=== PATIENT | male | born 1950 | race Caucasian/White ===

== ENCOUNTER 2017-09-26 17:11 | Emergency (ER) | payer MEDICARE, MEDICAID ==
[2017-09-26 19:48] LABS: Hematocrit 48.2 % (42.0-52.0); Hemoglobin 16.8 gm/dL (13.5-18.0); Mean Cell Volume 90.1 fl (78-100); Mean Corpuscular Hemoglobin 31.4 pg (27-31); Mean Corpuscular Hgb Conc 34.9 g/dl (32-36); Mean Platelet Volume 11.2 fl (6.0-9.5); Neutrophil % 69.8 % (42-75.0); Platelet Count 204 K/mm3 (150-450); Red Blood Count 5.35 M/mm3 (4.7-6.0); Red Cell Distribution Width 13.3 % (11.5-14.0); White Blood Count 7.2 K/mm3 (4.0-10.5)
[2017-09-26 19:59] LABS: Prothrombin Time (Patient) 23.4 Seconds (9.0-11.0)
[2017-09-26 20:00] LABS: INR 2.32 INR (0.90-1.10)
[2017-09-26 20:03] LABS: Albumin * 3.7 gm/dl (3.4-5.0); BUN/Creatinine Ratio 9.7 (9.0-21.6); Bilirubin, Total 0.4 mg/dL (0.0-1.1); Ca. Corrected For Albumin 9.1 mg/dL (8.4-10.2); Calcium * 9.2 mg/dL (7.9-10.9); Carbon Dioxide 31.1 mmol/L (24-32.6); Potassium 4.1 mmol/L (3.4-4.6); Total Protein 7.9 gm/dL (6.2-8.2)
--- NOTE | 2017-09-26 20:03 | ERNOTE ---
Abdominal HPI - Narrative Date of Service: 09/26/17 - General Chief Complaint: Abdominal Pain Time Seen by Provider: 09/26/17 19:22 Source: patient, family, RN notes reviewed Exam Limitations: no limitations - Immun/Allergies/Home Medications Immunizatons: IMMUNIZATION HX Immunizations Up to Date Yes History of Influenza Vaccine Yes Hx Pneumococcal Vaccination Yes Allergies/Adverse Reactions: Allergies lorazepam [From Ativan] Adverse Reaction (Intermediate, Verified 09/26/17 17:19) Other Home Medications: HOME MEDICATIONS Aspirin 325 mg PO DAILY 01/19/15 [Last Taken Unknown] Baclofen 10 mg PO QID 01/19/15 [Last Taken Unknown] Beta-Carotene(A) W-C , E/Min [Ocuvite] 1 tab PO DAILY 01/19/15 [Last Taken Unknown] Citalopram Hydrobromide [Celexa] 40 mg PO DAILY 01/19/15 [Last Taken Unknown] Docusate Sodium [Colace] 100 mg PO DAILY 01/19/15 [Last Taken Unknown] Famotidine [Pepcid AC] 20 mg PO DAILY 01/19/15 [Last Taken Unknown] Metoprolol Succinate [Toprol Xl] 100 mg PO QPM 01/19/15 [Last Taken Unknown] Multivits-Minerals/FA/Lycopene [Men's Daily Formula Tablet] 1 each PO DAILY [Last Taken Unknown] Ubidecarenone [Coq10] 100 mg PO DAILY 01/19/15 [Last Taken Unknown] levETIRAcetam [Keppra] 1,000 mg PO BID 01/19/15 [Last Taken Unknown] Tamsulosin HCl [Flomax] 0.8 mg PO HS 09/17/15 [Last Taken Unknown] Hydrochlorothiazide [Hydrodiuril] 25 mg PO DAILY PRN 03/15/16 [Last Taken Unknown] Warfarin Sodium [Coumadin] 6 mg PO DAILY 03/15/16 [Last Taken Unknown] Albuterol Sulfate/Ipratropium [Duoneb 2.5-0.5MG/3ML Soln] 3 ml IH DAILY [Last Taken Unknown] Atorvastatin Calcium [Lipitor] 40 mg PO DAILY 03/13/17 [Last Taken Unknown] HYDROcodone/ACETAMINOPHEN [[place] 5-325] 1 tab PO Q6H PRN 03/13/17 [Last Taken Unknown] Melatonin 6 mg PO 03/13/17 [Last Taken Unknown] - History of Present Illness Narrative: Mr. Carolina is a 66 year old male brought to the ED by his for RUQ abdominal pain that began 3 days ago. He vomited once that day and has had nausea off and on since then. He reports that he has been eating without an increase in pain. His reports that he was initially denying that he was having pain, but she noticed that he was splinting his RUQ. He has expressive aphasia and left sided weakness due to a CVA 5 years ago. Most of the history is provided by his . Date (Duration): 09/23/17 Prior Abdominal Problems: Absent: similar symptoms Prior Treatment: Absent: recently seen Review of Systems - Review of Systems Constitutional: Absent: fever, chills, decreased activity level EYE: Present: no symptoms reported ENT: Present: no symptoms reported Respiratory: Absent: shortness of breath, cough Cardiology: Absent: chest pain, syncope Gastrointestinal/Abdominal: Present: nausea, vomiting, abdominal pain. Absent: diarrhea, constipation, eating less, drinking less Genitourinary: Absent: dysuria, hematuria Musculoskeletal: Absent: muscle pain, joint pain Skin: Absent: rash, lesions Neurological: Present: pre-existing deficit. Absent: headache Endocrine: Present: no symptoms reported Hematologic/Lymphatic: Absent: easy bruising, easy bleeding Psych: Absent: anxiety, depressed - Patient's Past Medical History Patient History - Medical: Seizures, Other - Hemiparesis Patient History - Cardiac/Respiratory: Atrial Fibrillation, Coronary Heart Disease, CVA/Stroke, Pneumonia, Sleep Apnea Patient History - Cancer: Skin Patient History - Surgical Procedures: Other - Carotid endarterectomy Patient History - Other: None - Social History Living Situations: spouse Abuse History: No History of abuse Psych History: Hx of Depression Smoking Status: Former smoker Have you smoked in the past 12 months: No Do you dip or chew tobacco: No Alcohol Use: none Drug Use: none - Immunizations Immunizations Up to Date: Yes Hx Pneumococcal Vaccination: Yes History of Influenza Vaccine: Yes Physical Exam - Physical Exam General Appearance: Present: wd/wn, alert, no apparent distress Head Exam: Present: normal inspection Neck: Present: normal inspection, nontender, supple Respiratory: Present: no respiratory distress, normal breath sounds, no accessory muscle use, lungs clear Cardiovascular/Chest: Present: regular rate, rhythm, no murmur, normal peripheral pulses Gastrointestinal/Abdominal: Present: normal bowel sounds, soft, tenderness - RUQ , distended. Absent: guarding, mass Extremity Exam: Present: normal inspection, no edema Neurological Exam: Present: alert, oriented, normal mood/affect. Absent: no motor/sensory deficits Skin Exam: Present: normal color, warm/dry ED Progress - Results and Orders Patient's Lab Results:: I have reviewed the patient's lab results. - Vital Signs Patient's Vital Signs:: I have reviewed the patient's vital signs. Vital Signs: Vital Signs 09/26/17 09/26/17 09/26/17 17:15 18:19 20:00 Temperature 36.6 C Pulse Rate 91 92 90 Respiratory 20 18 18 Rate Blood Pressure 132/76 135/79 145/98 O2 Sat by Pulse 90 91 91 Oximetry - X-Ray X-Ray #1 X-Ray: abdomen Interpretation: Reviewed by me X-ray Comments: IMPRESSION: Multiple nonspecific scattered air-fluid levels with loops of small bowel measuring at the upper limits of normal. Additionally, there is gaseous distention of the transverse colon. These findings could relate to an ileus versus a partial small bowel obstruction. Electronically signed by Joy Romero D.O.. - Progress/Reassessment Chief Complaint: Abdominal Pain Progress:: Unchanged - Transfer of Care Physician Sign Out: Natalie Alva Receiving Physician: Medhat Robles Pending Results: CT/MRI results Expected Disposition: Discharge Departure Clinical Impression: RUQ abdominal pain - Departure Disposition: Home Follow Up Needed Condition: Stable Referrals: Hever Suarez MD [Primary Care Provider] -
[2017-09-26] MEDS ORDERED: NORMAL SALINE 1,000 ML IV ONE (20:56)
[2017-09-26] MEDS ORDERED: DIATRIZOATE MEGLUMINE, SODIUM 30 ML BTL PO ONE (20:56)
[2017-09-27 02:31] LABS: Urine Bilirubin Negative (NEGATIVE); Urine Blood Negative /ul (NEGATIVE); Urine Ketone Negative (NEGATIVE); Urine Nitrite Negative (NEGATIVE); Urine Protein 15 mg/dL (NEGATIVE); Urine Urobilinogen Normal (NORMAL)
[2017-09-27 02:35] LABS: Urine Amorphous Sediment Few - 1+ (NONE-FEW); Urine Appearance Clear; Urine Bacteria 3+; Urine Color Yellow; Urine RBC 0-5 /hpf (0-5)
[2017-09-27] MEDS ORDERED: ONDANSETRON 4 MG TAB.RAPDIS PO ONE (05:46)
[2017-09-27] MEDS ORDERED: ONDANSETRON 4 MG TAB.RAPDIS ONE (05:51)
[2017-09-27 06:06] VITALS: BP 158/79
== END 2017-09-27 06:00 | disposition home or self-care (01) ==
LOC: ER 17:11
DX: R10.11 Right upper quadrant pain (principal); R93.5 Abnormal findings on diagnostic imaging of other abdominal regions, including retroperitoneum; Z85.828 Personal history of other malignant neoplasm of skin; Z87.891 Personal history of nicotine dependence

== ENCOUNTER 2017-10-01 14:26 | Inpatient (IN) | payer MEDICARE, MEDICAID ==
[2017-10-01] MEDS ORDERED: ALBUTEROL SULFATE 2.5 MG/0.5 ML VIAL.NEB IH PRN (16:18)
[2017-10-01] MEDS ORDERED: PHYTONADIONE (VIT K1) 5 MG TABLET PO ONE ×2 (16:18→21:00)
[2017-10-01] MEDS ORDERED: MAGNESIUM HYDROXIDE 30 ML UDC PO PRN (16:18)
--- NOTE | 2017-10-01 16:39 | PN ---
Lacey Note - Interim Date: 10/01/17 Time: 16:35 Narrative: 10/01/17 16:35 The patient is seen face to face in the hospital on 10/01/2017 for his acute admission. Reviewed and agree with the office H and PAgustin
--- NOTE | 2017-10-01 16:41 | CONS ---
[facility] - General Date of Service: 10/01/17 Narrative: Asked to see patient for acute acalculous cholecystitis. Was seen in ER last week for stabbing RUQ pain. Work up revealed a thickened gallbladder wall with surrounding inflammation. An ultrasound confirmed the same and was suspicious for acalculous cholecystitis. No gallstones were seen. A subsequent HIDA scan showed non-filling of the gallbladder. He is having ongoing RUQ pain and has had fevers over the weekend. His LFTs and WBC have remained normal throughout. He is on coumadin for a past history of stroke. Source: patient, family, RN/MD, old records Exam Limitations: no limitations - History of Present Illness Allergies/Adverse Reactions: Allergies bee pollen Allergy (Verified 10/01/17 15:37) lorazepam [From Ativan] Adverse Reaction (Intermediate, Verified 10/01/17 15:37) Other Home Medications: Home Medications Medication Instructions Recorded Last Taken Aspirin 325 mg PO DAILY 01/19/15 Unknown Baclofen 10 mg PO QID 01/19/15 Unknown Beta-Carotene(A) W-C , E/Min 1 tab PO DAILY 01/19/15 Unknown [Ocuvite] Citalopram Hydrobromide [Celexa] 40 mg PO DAILY 01/19/15 Unknown Docusate Sodium [Colace] 200 mg PO HS 01/19/15 Unknown Famotidine [Pepcid AC] 20 mg PO DAILY 01/19/15 Unknown Metoprolol Succinate [Toprol Xl] 100 mg PO QPM 01/19/15 Unknown Multivits-Minerals/FA/Lycopene 1 each PO DAILY 01/19/15 Unknown [Men's Daily Formula Tablet] Ubidecarenone [Coq10] 100 mg PO DAILY 01/19/15 Unknown levETIRAcetam [Keppra] 1,000 mg PO DAILY 01/19/15 Unknown Tamsulosin HCl [Flomax] 0.8 mg PO HS 09/17/15 Unknown Hydrochlorothiazide [Hydrodiuril] 25 mg PO DAILY PRN 03/15/16 Unknown Warfarin Sodium [Coumadin] 6 mg PO DAILY 03/15/16 Unknown Albuterol Sulfate/Ipratropium 3 ml IH BID 03/13/17 Unknown [Duoneb 2.5-0.5MG/3ML Soln] Atorvastatin Calcium [Lipitor] 40 mg PO DAILY 03/13/17 Unknown HYDROcodone/ACETAMINOPHEN [[place] 1 tab PO Q6H PRN 03/13/17 Unknown 5-325] Melatonin 9 mg PO HS 03/13/17 Unknown Albuterol Sulfate [Ventolin HFA] 2 puff IH Q4H PRN 10/01/17 Unknown Magnesium Hydroxide [Milk of 30 ml PO DAILY PRN 10/01/17 Unknown Magnesia] levETIRAcetam [Keppra] 1,250 mg PO HS 10/01/17 Unknown - Patient's Past Medical History Patient History - Medical: Seizures, Other - Hemiparesis Patient History - Cardiac/Respiratory: Atrial Fibrillation, Coronary Heart Disease, CVA/Stroke, Pneumonia, Sleep Apnea Patient History - Cancer: Skin Patient History - Surgical Procedures: Other - Carotid endarterectomy Patient History - Other: None - Social History Abuse History: No History of abuse Psych History: Hx of Depression Smoking Status: Former smoker Have you smoked in the past 12 months: No - Immunizations Immunizations Up to Date: Yes Hx Pneumococcal Vaccination: Yes History of Influenza Vaccine: Yes Physical Examination - Exam Vital Signs: Vital Signs - Last Taken Temp 36.5 C 10/01/17 15:53 Pulse 84 10/01/17 15:53 Resp 20 10/01/17 15:53 BP 119/90 10/01/17 15:53 Pulse Ox 93 10/01/17 15:53 O2 Oxygen Delivery Method Room Air Constitutional: Present: Alert, Oriented x3, Cooperative, Well developed, Well nourished, No distress ENT Exam: Present: normal ENT inspection Neck: Present: non-tender, supple, trachea midline. Absent: lymphadenopathy (R) , lymphadenopathy (L) Respiratory: Present: lungs clear, normal breath sounds, no respiratory distress , no accessory muscle use Cardiovascular/Chest: Present: regular rate, rhythm, no murmur Abdomen: Present: Normal bowel sounds, soft, tender - Mild RUQ Extremity: Present: normal inspection Skin Exam: Present: normal color, warm/dry Neurologic: Present: no motor/sensory deficits Eye contact: Present: cooperative, good eye contact Thoughts: Present: normal thought pattern - Assessments/Findings (1) Acute acalculous cholecystitis Diagnosis(s): Case discussed with Dr. Suarez who will reverse his anticoagulation. Curious presentation. Most cases I've seen of acute acalculous cholecystitis are deathly ill from some other disease process. So ill, in fact, that we usually percutaneously drain the gallbladder. That doesn't appear to be the case here. I have recommended a laparoscopic cholecystectomy. The options, risks , and benefits were reviewed fully with the patient. He seems to understand, asks appropriate questions, and desires to proceed. Problem: Acute
[2017-10-01] MEDS: DEXTROSE 5%-0.5 NORMAL SALINE 1,000 ML IV PRN (16:43)
[2017-10-01] MEDS: metroNIDAZOLE/SODIUM CHLORIDE 500 MG/100 ML BAG IV SCH ×2 (16:50→23:39)
[2017-10-01] MEDS: BACLOFEN 10 MG TABLET PO SCH ×2 (16:59→22:03)
[2017-10-01] MEDS: METOPROLOL SUCCINATE 100 MG TABLET.SA PO SCH (16:59)
[2017-10-01] MEDS: HYDROcodone/ACETAMINOPHEN 1 EACH TABLET PO PRN (16:59)
[2017-10-01] MEDS: ALBUTEROL SULFATE/IPRATROPIUM 3 ML NEBU IH SCH ×2 (17:25→19:11)
[2017-10-01] MEDS: CIPROFLOXACIN IN 5 % DEXTROSE 400 MG/200 ML BAG IV SCH (18:03)
[2017-10-01] MEDS: MELATONIN 3,000 MCG TABLET PO SCH (21:59)
[2017-10-01] MEDS: ATORVASTATIN CALCIUM 40 MG TABLET PO SCH (22:00)
[2017-10-01] MEDS: levETIRAcetam 500 MG TABLET PO SCH ×2 (22:01)
[2017-10-01] MEDS: TAMSULOSIN HCL 0.4 MG CAP.SR.24H PO SCH (22:02)
[2017-10-01] MEDS: DOCUSATE SODIUM 100 MG CAPSULE PO SCH (22:03)
[2017-10-02] MEDS ORDERED: ACETAMINOPHEN 325 MG TABLET PO PRN (02:15)
[2017-10-02] MEDS: CIPROFLOXACIN IN 5 % DEXTROSE 400 MG/200 ML BAG IV SCH ×3 (05:07→20:32)
[2017-10-02 05:46] LABS: Prothrombin Time (Patient) 21.2 Seconds (9.0-11.0)
[2017-10-02 06:00] LABS: INR 2.1 INR (0.90-1.10)
[2017-10-02] MEDS: ALBUTEROL SULFATE/IPRATROPIUM 3 ML NEBU IH SCH ×2 (06:17→20:21)
--- NOTE | 2017-10-02 06:49 | PN ---
Subjective - Date and Time Seen Date: 10/02/17 Time: 06:40 Subjective Narrative: Patient seen today in bed with at the bedside, he denies abdominal pain, nausea or vomiting. overnight he spiked temp 39.8 it had resolved by morning. pt anticipating surgery at 4pm today. Objective - Review of Systems Generalized/Overall Review: Reports: No Symptoms Reported EENTM: Reports: No Symptoms Reported Respiratory: Reports: No Symptoms Reported Cardiac: Reports: No Symptoms Reported Abdominal: Reports: No Symptoms Reported Genitourinary Symptoms: Reports: No Symptoms Reported Musculoskeletal Complaints: Reports: No Symptoms Reported Neurological: Reports: No Symptoms Reported Skin: Reports: No Symptoms Reported Endocrine: Reports: No Symptoms Reported - Vitals Vitals: Last Vital Signs Temp 38.4 C H 10/02/17 03:00 Pulse 91 10/02/17 06:27 Resp 20 10/02/17 06:27 BP 127/81 10/02/17 03:00 Pulse Ox 97 10/02/17 06:17 - Abnormal Lab Findings Abnormal Lab Findings: Abnormal Lab Results 10/02/17 Range/Units 05:33 PT 21.2 H (9.0-11.0) Seconds INR (Anticoag Therapy) 2.10 H (0.90-1.10) INR - Exam Constitutional: Present: Alert, Oriented x3, Cooperative, No distress, Middle aged, Obese ENT Exam: Present: hearing grossly normal Neck: Present: non-tender, full range of motion, supple, normal inspection, trachea midline Respiratory: Present: chest non-tender, lungs clear, normal breath sounds, no respiratory distress Cardiovascular/Chest: Present: normal peripheral pulses, regular rate, rhythm, no chest tenderness, no gallop, no JVD Abdomen: Present: Normal bowel sounds, soft, nontender, nondistended, no rebound tenderness /Rectal: Present: Exam deferred Extremity: Present: normal range of motion, non-tender, normal inspection, no pedal edema, no calf tenderness Skin Exam: Present: normal color, warm/dry, no cyanosis Neurologic: Present: alert, normal mood/affect, oriented x 3 Appearance: Present: appropriate appearance, appropriate insight Eye contact: Present: cooperative, good eye contact Thoughts: Present: normal thought pattern, no apparent hallucination Assessment/Plan Plan Narrative: Acute cholecystitis On adm WBC within normal limit, neutrophile (80% with left shift) Dr Fitzgerald following Hepatobiliary scan:No filling of the gallbladder lumen. suggestive of cystic duct obstruction. Abnormal gallbladder wall thickness, suspicious for cholecystitis. Keep NPO and continue with IVF Spiked fever 39.8 overnight and blood cultures pending Chronic conditions -stable Seizure- safety measures while hospitalized Vasovagal syncope Supertherapeutic INR On Coumadin 6mg daily On adm INR 3.53--->.2.10 Vitamin K 5mg x2 was given 2UFFP to be on hold but possible may have no need to use them. Code status: Full with restrictions GI ppx: pepcid VTE ppx: SCD and ambulation Time 15 minutes and case discussed with Dr Suarez. - Problems/Diagnosis (1) Acute acalculous cholecystitis Problem: Acute (2) Seizure Problem: Chronic (3) Vasovagal syncope Problem: Chronic
[2017-10-02] MEDS: metroNIDAZOLE/SODIUM CHLORIDE 500 MG/100 ML BAG IV SCH ×2 (07:34→15:30)
[2017-10-02] MEDS ORDERED: PHYTONADIONE (VIT K1) 10 MG/ML AMPUL SC ONE (07:35)
[2017-10-02] MEDS: HYDROcodone/ACETAMINOPHEN 1 EACH TABLET PO PRN ×2 (07:39→15:29)
[2017-10-02] MEDS: BACLOFEN 10 MG TABLET PO SCH ×4 (08:02→22:15)
[2017-10-02] MEDS ORDERED: CITALOPRAM HYDROBROMIDE 20 MG TABLET PO SCH (09:00)
[2017-10-02] MEDS ORDERED: FAMOTIDINE 20 MG TABLET PO SCH (09:00)
[2017-10-02] MEDS ORDERED: ASPIRIN 325 MG TABLET.DR PO SCH (09:00)
[2017-10-02] MEDS ORDERED: levETIRAcetam 500 MG TABLET PO SCH (09:00)
[2017-10-02] MEDS ORDERED: BETA-CAROTENE(A) W-C , E/MIN 1 TAB TABLET PO SCH (09:00)
[2017-10-02] MEDS ORDERED: ACETAMINOPHEN 650 MG SUPP.RECT RC PRN (10:28)
[2017-10-02] MEDS: DEXTROSE 5%-0.5 NORMAL SALINE 1,000 ML IV PRN ×2 (11:15→18:05)
[2017-10-02] MEDS: METOPROLOL SUCCINATE 100 MG TABLET.SA PO SCH ×2 (15:29→16:04)
[2017-10-02 16:04] LABS: INR 1.2 INR (0.90-1.10)
[2017-10-02] MEDS ORDERED: NORMAL SALINE 1,000 ML IV ONE ×2 (18:05→19:00)
[2017-10-02] MEDS ORDERED: BUPIVACAINE HCL/EPINEPHRINE 50 ML VIAL IJ ONE (18:45)
--- NOTE | 2017-10-02 19:29 | OR ---
Operative Report - Dictated Report Narrative: Date: 10/02/2017 Preoperative diagnosis: Acute acalculous cholecystitis Postoperative diagnosis: Same Procedure: Diagnostic laparoscopy Staff surgeon: Javi Elizondo MD EBL: minimal Specimens: none Drains: none Description of procedure: The patient was placed in the supine position and following the smooth induction of general endotracheal anesthesia the abdomen was prepped and draped in a sterile fashion. All port sites were anesthetized with marcaine prior to incision. a 5mm infraumbilical incision was made. Blunt dissection was taken down to the abdominal wall. A perforating towel clip was placed through the umbilical raphe for countertraction. The abdomen was entered under direct vision with 5mm blunt port with a scope within the lumen of the trocar. The abdomen was then insufflated to a pressure of 15mmHg with carbon dioxide. Under direct vision a superior midline 5mm port was inserted. It was immediately apparent that the omentum was densely adherent to the gallbladder and the small portion of the fundus that could be seen appeared to be hepatized. This did not appear to be amenable to laparoscopic removal and the case was therefore terminated with plans for ongoing antibiotics and percutaneous drainage. The pneumoperitoneum was evacuated and the ports removed. The incisions were closed with subcuticular stitches of 4-0 vicryl and sealed with dermabond. The patient tolerated the procedure well without apparent complications and was discharged from the operating suite in stable condition.
[2017-10-02] MEDS: DOCUSATE SODIUM 100 MG CAPSULE PO SCH (22:15)
[2017-10-02] MEDS: TAMSULOSIN HCL 0.4 MG CAP.SR.24H PO SCH (22:17)
[2017-10-02] MEDS: levETIRAcetam 500 MG TABLET PO SCH ×2 (22:17)
[2017-10-02] MEDS: ATORVASTATIN CALCIUM 40 MG TABLET PO SCH (22:17)
[2017-10-02] MEDS: MELATONIN 3,000 MCG TABLET PO SCH (22:18)
[2017-10-02 23:53] VITALS: BP 153/92
--- NOTE | 2017-10-03 02:03 | DS ---
(1) CVA (cerebral vascular accident) Problem: Acute (2) Acute acalculous cholecystitis Problem: Acute (3) Seizure Problem: Chronic (4) HTN (hypertension) Problem: Chronic Qualifiers: Hypertension type: essential hypertension Qualified Code(s): I10 - Essential (primary) hypertension (5) HLD (hyperlipidemia) Problem: Chronic (6) CAD (coronary artery disease) Problem: Chronic Description of Stay: Pt is a 66-yr-old WM pt whose PMH is significant for: A-fib, CVA with LT hemiparesis, CAD, HTN, HLD & Seizure. He initially presented to the ED on with complaints of RUQ abdominal pain. CT scan of the Abdomen showed Acute cholecystitis. US of the Gallbladder showed Acute Acalculous Cholecystitis. His Labwork and V.S were WNL during that ER visit except for INR of 3.53. He was discharged from the ED on Zofran with an oupatient work-up plan for Cholecystectomy. Arrangements were made for HIDA scan outpatient and also for INR level to be reversed incase of surgical procedure. He followed up with his PCP on 10/01 with complaints of fevers. His HIDA scan had comeback showing Acute cholecystitis but no gallstones were seen. He was then admitted inpatient into the hospital on 10/01 and Surgery was consulted. Plan was to proceed with Lap. Cholecystectomy on 10/02 following reversal of his INR. He received Vitamin K and 2 units of FFP which lowered it to 1.20. He underwent surgery as planned on the evening of 10/02. However, according to the surgeon, his acute cholecystitics needed far more surgery than anticipated, which could not be accomplished at our facility. He determined that given his findings while attempting to perform Lap. Mrago, the pt needed a percutanous cholecystectomy at a facility with an Interventional radiologist. I spoke to Gen. Surgery at the [facility] who determined that based on pt's comorbodities and the findings on surgical procedure, he would not be a surgical candidate for an open cholecystectomy. He was accepted though to the MICU with tentative plan of percutanous cholecystectomy, and the accepting physician was Dr. Souleymane Ledesma. Pt was in a stable condition at the time of transfer. Procedures Performed: see notes below List Procedures: Diagnostic Lap Cholecystectomy. Discharge Location: [facility] Disposition: Short Term Hospital Inpatient Condition: Stable Referrals: Libarnes,Roseller, MD [Primary Care Provider] - Additional Patient Instructions (free text): -Please make TCM appointment unless prison discharge. Thank you! Laila @ [phone]. Complete Home Medications List: Complete Home Medication List: Aspirin 325 mg PO DAILY 01/19/15 Baclofen 10 mg PO QID 01/19/15 Beta-Carotene(A) W-C , E/Min [Ocuvite] 1 tab PO DAILY 01/19/15 Citalopram Hydrobromide [Celexa] 40 mg PO DAILY 01/19/15 Docusate Sodium [Colace] 200 mg PO HS 01/19/15 Famotidine [Pepcid AC] 20 mg PO DAILY 01/19/15 Metoprolol Succinate [Toprol Xl] 100 mg PO QPM 01/19/15 Multivits-Minerals/FA/Lycopene [Men's Daily Formula Tablet] 1 each PO DAILY Ubidecarenone [Coq10] 100 mg PO DAILY 01/19/15 levETIRAcetam [Keppra] 1,000 mg PO DAILY 01/19/15 Tamsulosin HCl [Flomax] 0.8 mg PO HS 09/17/15 Hydrochlorothiazide [Hydrodiuril] 25 mg PO DAILY PRN 03/15/16 Warfarin Sodium [Coumadin] 6 mg PO DAILY 03/15/16 Albuterol Sulfate/Ipratropium [Duoneb 2.5-0.5MG/3ML Soln] 3 ml IH BID 03/13/17 Atorvastatin Calcium [Lipitor] 40 mg PO DAILY 03/13/17 HYDROcodone/ACETAMINOPHEN [[place] 5-325] 1 tab PO Q6H PRN 03/13/17 Melatonin 9 mg PO HS 03/13/17 Albuterol Sulfate [Ventolin HFA] 2 puff IH Q4H PRN 10/01/17 Magnesium Hydroxide [Milk of Magnesia] 30 ml PO DAILY PRN 10/01/17 levETIRAcetam [Keppra] 1,250 mg PO HS 10/01/17
== END 2017-10-02 23:55 | disposition short-term general hospital (02) | DRG 421 ==
LOC: MS 14:26
PROVIDERS: ADMIT Internal Medicine; ATTEND Internal Medicine
PROC: 0WJP4ZZ Inspection of Gastrointestinal Tract, Percutaneous Endoscopic Approach (ICD-10-PCS; principal; 2017-10-02)
DX: K81.0 Acute cholecystitis (principal); I69.354 Hemiplegia and hemiparesis following cerebral infarction affecting left non-dominant side; I48.2 Chronic atrial fibrillation; I10 Essential (primary) hypertension; E78.5 Hyperlipidemia, unspecified; I25.10 Atherosclerotic heart disease of native coronary artery without angina pectoris; Z87.891 Personal history of nicotine dependence; Z79.01 Long term (current) use of anticoagulants; Z79.82 Long term (current) use of aspirin; Z85.828 Personal history of other malignant neoplasm of skin; Z88.8 Allergy status to other drugs, medicaments and biological substances; Z91.030 Bee allergy status
CPT/HCPCS: 36415; 49320; 85610; 87040; 93005; 94640; 94660; P9060